=== PATIENT | female | born 2005 | race Hispanic/Latino ===

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

== ENCOUNTER 2025-07-31 17:52 | Emergency (ER) | payer SELFPAY ==
[2025-07-31] MEDS ORDERED: Ibuprofen 800 MG TAB ONE (18:10)
[2025-07-31] MEDS ORDERED: Acetaminophen 325 MG TAB ONE (18:10)
[2025-07-31] MEDS ORDERED: Ondansetron PF 4 MG/2 ML Vial ONE (18:25)
[2025-07-31 18:26] LABS: Glucose, Urine (Dipstick) Normal (Negative); Leukocyte Negative (Negative); Protein, Urine (Dipstick) 15 mg/dl (Neg-Trace); Specific Gravity, Urine 1.020 (1.005-1.030)
[2025-07-31 18:48] LABS: D-Dimer Test 0.33 mcg/mL (0.19-0.50); INR-International Normal Ratio 1.0; PTT 25.9 sec (22.0-33.0); Prothrombin Time 11.2 sec (9.5-12.1)
[2025-07-31 18:50] LABS: ALT (SGPT) 17 U/L (Less than 34); AST (SGOT) 26 U/L (11-34); Albumin 4.4 g/dL (3.1-4.5); Alkaline Phosphatase 58 U/L (40-110); Anion Gap 14 mmol/L (10-20); BUN (Urea Nitrogen) 12 mg/dL (7.0-18.7); Bilirubin, Total 0.1 mg/dL (0.3-1.2); Calc. Creatinine Clearance 0 mL/min (70-130); Calcium 9.4 mg/dL (7.8-10.44); Carbon Dioxide 21 mmol/L (22-29); Chloride 102 mmol/L (98-107); Globulin 3.4 g/dL (2.4-3.5); Glucose 83 mg/dL (70-105); Potassium 3.4 mmol/L (3.5-5.1); Sodium 134 mmol/L (136-145)
[2025-07-31 18:52] LABS: #Basophils Less than 0.03 10x3/uL (0.0-0.2); #Eosinophils Less than 0.03 10x3/uL (0.0-0.5); #Monocytes 0.39 10x3/uL (0.0-1.1); #Neutrophils 5.29 10x3/uL (1.5-8.4); %Basophils 0.2 % (0.0-2.0); %Eosinophils 0.2 % (0.0-6.0); %Lymphocytes 5.9 % (18.0-47.0); %Monocytes 6.4 % (0.0-10.0); %Neutrophils 87.0 % (40.0-75.0); Hematocrit 35.6 % (34.9-44.5); Hemoglobin 11.0 g/dL (12.0-15.5); Mean Corpuscular Hemoglobin 22.1 pg (27.0-33.0); Mean Corpuscular Volume 71.6 fL (81.6-98.3); Platelet Count 200 10x3/uL (150-450); Red Blood Cell (RBC) Count 4.97 10x6/uL (3.90-5.03); White Blood Cell (WBC) Count 6.08 10x3/uL (3.5-10.5)
[2025-07-31 19:20] LABS: Troponin I Less than 0.010 ng/mL (< 0.028)
[2025-07-31 19:30] LABS: Bacteria/HPF 2+ HPF (None Seen); CAUTI Indications for Culture Fever or rigors; Mucous/LPF Rare LPF (<2+); Urine Culture Reflex No No; WBC/HPF 0-3 HPF (0-3)
== END 2025-07-31 19:54 | disposition home or self-care (01) ==
LOC: CSHERS 17:52
DX: J10.1 Influenza due to other identified influenza virus with other respiratory manifestations (principal); I10 Essential (primary) hypertension
CPT/HCPCS: 36415; 71045; 80053; 81001; 83605; 83880; 84484; 85025; 85379; 85610; 85730; 87040; 87428; 93005; 96374; J2405